=== PATIENT | male | born 1940 | race Caucasian/White ===

== ENCOUNTER 2021-06-18 14:00 | Inpatient (IN) | payer MEDICARE, OTHER ==
[~2021-06-18] VITALS: Ht 172.7 cm; Wt 86.2 kg
--- NOTE | 2021-06-18 14:00 | NUR ---
PT [facility] C/O CHEST PAIN PRESSURE LIKE STARTED 1 HR MINE SAFETY ENGINEER. PT IS AAOX3, NOT IN RESPIRATORY DISTRESS, HOOKED TO WET ROOM WORKER, KEPT RESTED AND COMFORTABLE. WILL CONTINUE TO MONITOR.
--- NOTE | 2021-06-18 14:50 | NUR ---
IV LINE ESTABLISHED BLOOD DRAWN AND SENT TO LAB.
[2021-06-18 15:15] LABS: BASOPHILS # (AUTO) 0.1 K/uL (0.0-0.2); BASOPHILS % (AUTO) 0.8 % (0.0-2.0); EOSINOPHILS % (AUTO) 3.1 % (0.0-6.0); HEMATOCRIT 40 % (39-51); HEMOGLOBIN 13.3 g/dL (13.5-17.5); LYMPHOCYTES % (AUTO) 34.8 % (20.0-44.0); MEAN CORPUSCULAR HGB CONC 34 g/dl (31.0-36.0); MEAN CORPUSCULAR VOLUME 95 fL (80-96); MONOCYTES # (AUTO) 1.3 K/uL (0.1-1.30); MONOCYTES % (AUTO) 14.6 % (2.0-12.0); NEUTROPHILS # (AUTO) 4.1 K/uL (1.8-8.9); NEUTROPHILS % (AUTO) 46.7 % (43.0-81.0); PLATELET COUNT (AUTO) 227 K/uL (150-450); RED BLOOD CELL COUNT(AUTO) 4.18 MIL/uL (4.5-6.0); WHITE BLOOD COUNT (AUTO) 8.7 K/uL (4.3-11.0)
[2021-06-18 15:26] LABS: CALCIUM, SERUM 9.3 mg/dL (8.5-10.1); CREATININE 1.3 mg/dL (0.6-1.3); POTASSIUM 4.9 mmol/L (3.5-5.1)
--- NOTE | 2021-06-18 15:34 | NUR ---
DUNG FROM THE LAB CALLED REGARDING A CRITICAL VALUE OF TROPONIN 0.604. MD LOVE WAS MADE AWARE.
[2021-06-18] MEDS ORDERED: HEPARIN INFUSION/D5W 500 ML IV ONE (15:53)
[2021-06-18] MEDS ORDERED: HEPARIN INFUSION/D5W 500 ML IV PRN ×2 (16:00→16:30)
[2021-06-18] MEDS ORDERED: Z GUARD REMEDY 4 OZ OINT TP PRN (16:30)
[2021-06-18] MEDS ORDERED: ACETAMINOPHEN 325 MG TABLET PO PRN (16:30)
[2021-06-18] MEDS ORDERED: MAGNESIUM HYDROXIDE 30 ML UDC PO PRN (16:30)
[2021-06-18] MEDS ORDERED: ASPIRIN 325 MG TABLET PO SCH (16:30)
[2021-06-18] MEDS ORDERED: ONDANSETRON HCL/PF 4 MG/2 ML VIAL IVP PRN (16:30)
[2021-06-18] MEDS ORDERED: MAG HYDROX/AL HYDROX/SIMETH 30 ML UDC PO PRN (16:30)
[2021-06-18] MEDS ORDERED: AMLO-212 PO (16:56)
[2021-06-18] MEDS ORDERED: MORPHINE SULFATE INJ 4 MG/ML DISP.SYRIN ONE (16:59)
[2021-06-18] MEDS ORDERED: ONDANSETRON HCL/PF 4 MG/2 ML VIAL ONE (16:59)
[2021-06-18] MEDS ORDERED: MORPHINE SULFATE INJ 2 MG/ML DISP.SYRIN IV ONE (17:00)
[2021-06-18] MEDS ORDERED: NAPR-1009 PO (17:12)
[2021-06-18] MEDS ORDERED: MELA3CAP2 PO (17:12)
[2021-06-18] MEDS ORDERED: MULT-439 PO (17:12)
--- NOTE | 2021-06-18 17:14 | NUR ---
ASPIRIN 324MG GIVEN BY EMS WATER PROOFER.
[2021-06-18] MEDS ORDERED: ATORVASTATIN 10 MG TABLET ONE (17:28)
[2021-06-18] MEDS ORDERED: ONDANSETRON HCL/PF 4 MG/2 ML VIAL IV ONE (17:30)
[2021-06-18] MEDS ORDERED: ATORVASTATIN 10 MG TABLET PO SCH (17:30)
[2021-06-18] MEDS ORDERED: METOPROLOL TARTRATE 50 MG TABLET ONE (18:21)
[2021-06-18] MEDS: METOPROLOL TARTRATE 50 MG TABLET PO SCH (18:25)
--- NOTE | 2021-06-18 19:05 | NUR ---
HEPARIN DRIP FOR ACUTE CORONARY SYNDROME INITIATED BY DAY SHIFT RN. RATE AT MAX DOSE 1200UNITS/HR, NO BOLUS GIVEN PER MD.
--- NOTE | 2021-06-18 22:23 | NUR ---
PTT REDRAW RESULTED, PER HEPARIN DRIP PROTOCOL, NO CHANGE. RATE REMAINS AT 1200UNITS/HR
--- NOTE | 2021-06-18 22:26 | NUR ---
LAB AT BEDSIDE
--- NOTE | 2021-06-18 22:30 | NUR ---
PT PLACED ON 2L O2 VIA NC FOR COMFORT. PT SATURATING 96%
--- NOTE | 2021-06-18 23:05 | NUR ---
CRITICAL REPORTED TP ANTHONY PATTERSON DNP. ANTHONY AT BEDSIDE AT THIS TIME
[2021-06-18] MEDS ORDERED: MORPHINE SULFATE INJ 2 MG/ML DISP.SYRIN ONE (23:07)
[2021-06-18] MEDS: MORPHINE SULFATE INJ 2 MG/ML DISP.SYRIN IV PRN (23:14)
--- NOTE | 2021-06-18 23:30 | NUR ---
[facility] CALL INITIATED
--- NOTE | 2021-06-18 23:37 | NUR ---
CLINICALS BEING FAXED
--- NOTE | 2021-06-18 23:38 | NUR ---
SPOKE WITH JENNA WYNNE FAXE [phone]
--- NOTE | 2021-06-19 00:09 | NUR ---
RECEIVED CALL FROM JENNA WYNNE OF [facility]. PER [facility] CARDIOLOG[facility], NO TRANSFER, NOT EMERGENT TRANSFER.
--- NOTE | 2021-06-19 00:13 | NUR ---
DUBBING MACHINE OPERATOR - DR. GROSS
--- NOTE | 2021-06-19 01:07 | NUR ---
CALLED [facility] FOR HIGHER LEVEL OF CARE. BOTH [facility] AND [facility] IS AT CAPACITY AND CAN NOT ACCEPT PATIENT
--- NOTE | 2021-06-19 01:18 | NUR ---
CALLED [facility] TRANSF[facility] FOR HIGHER LEVEL OF CARE. BOTH [facility] AND [facility] IS AT CAPACITY
--- NOTE | 2021-06-19 01:27 | NUR ---
CALLED [facility] TRANSFER CENTER REQUESTING FOR HIGHER LEVEL OF CARE. TRANSFER INITITIATED. SPOKE WITH SOTO, SHE WILL CALL BACK FOR ACCEPTANCE.
--- NOTE | 2021-06-19 02:39 | NUR ---
PT IN BED SLEEPING. NO DISTRESS NOTED.
--- NOTE | 2021-06-19 03:16 | NUR ---
SPOKE WITH SOTO FROM [facility]. HOSPITAL IS AT CAPACITY AT THIS TIME. CASE IS STILL OPEN AND NOT DECLINED. ADVISED TO FOLLOW UP AFTER 0800, CALL TRANSFER CENTER
--- NOTE | 2021-06-19 03:18 | NUR ---
CLINICALS FAXED TO [facility]. PT IS GOING TO BE ON WAITLIST HOSP AT CAPACITY AT THIS TIME. ADVISED TO CALL BACK IN AM TO FOLLOW UP FOR AVAILABILITY
--- NOTE | 2021-06-19 04:41 | NUR ---
COVID SWABS COLLECTED AND SENT TO LAB
--- NOTE | 2021-06-19 05:43 | NUR ---
PT SLEEPING, ATTACHED TO MONITOR, NAD NOTED
--- NOTE | 2021-06-19 06:38 | NUR ---
PT ASSISTED TO RESTROOM, NEEDS MET
[2021-06-19 07:47] LABS: BASOPHILS # (AUTO) 0.1 K/uL (0.0-0.2); BASOPHILS % (AUTO) 0.5 % (0.0-2.0); EOSINOPHILS % (AUTO) 4.4 % (0.0-6.0); HEMATOCRIT 37 % (39-51); HEMOGLOBIN 12.4 g/dL (13.5-17.5); LYMPHOCYTES % (AUTO) 37.4 % (20.0-44.0); MEAN CORPUSCULAR HGB CONC 34 g/dl (31.0-36.0); MEAN CORPUSCULAR VOLUME 94 fL (80-96); MONOCYTES # (AUTO) 1.4 K/uL (0.1-1.30); MONOCYTES % (AUTO) 13.2 % (2.0-12.0); NEUTROPHILS # (AUTO) 4.7 K/uL (1.8-8.9); NEUTROPHILS % (AUTO) 44.5 % (43.0-81.0); PLATELET COUNT (AUTO) 240 K/uL (150-450); RED BLOOD CELL COUNT(AUTO) 3.92 MIL/uL (4.5-6.0); WHITE BLOOD COUNT (AUTO) 10.6 K/uL (4.3-11.0)
[2021-06-19 08:02] LABS: CALCIUM, SERUM 8.9 mg/dL (8.5-10.1); CARBON DIOXIDE 21 mmol/L (21-32); CHLORIDE 105 mmol/L (98-107); CREATININE 1.4 mg/dL (0.6-1.3); GLUCOSE 104 mg/dL (74-106); MAGNESIUM 2.1 mg/dL (1.8-2.4); PHOSPHORUS 3.5 mg/dL (2.5-4.9); POTASSIUM 3.8 mmol/L (3.5-5.1); SODIUM SERUM 137 mmol/L (136-145); UREA NITROGEN, BLOOD 27 mg/dL (7-18)
[2021-06-19] MEDS: METOPROLOL TARTRATE 50 MG TABLET PO SCH ×2 (09:30→20:26)
[2021-06-19] MEDS: ASPIRIN 81 MG TAB.CHEW PO SCH (09:30)
[2021-06-19] MEDS ORDERED: ASPIRIN 81 MG TAB.CHEW ONE (10:27)
[2021-06-19] MEDS ORDERED: METOPROLOL TARTRATE 50 MG TABLET ONE (10:27)
[2021-06-19] MEDS ORDERED: ATORVASTATIN 10 MG TABLET ONE (10:27)
--- NOTE | 2021-06-19 11:24 | NUR ---
DEVANTE FROM [facility] CALLED. CASE BEING DECLINED DUE TO CAPACITY.
--- NOTE | 2021-06-19 11:42 | NUR ---
IV LINE ESTABLISHED G20 R UPPER ARM
[2021-06-19] MEDS ORDERED: HEPARIN INFUSION/D5W 500 ML IV ONE (12:24)
[2021-06-19] MEDS ORDERED: LORAZEPAM INJ 2 MG/ML VIAL ONE (12:51)
[2021-06-19] MEDS ORDERED: LORAZEPAM INJ 2 MG/ML VIAL IV ONE (13:00)
--- NOTE | 2021-06-19 14:34 | NUR ---
GOT BED 103 AFTER 1530
[2021-06-19] MEDS ORDERED: MORPHINE SULFATE INJ 2 MG/ML DISP.SYRIN ONE (14:52)
[2021-06-19] MEDS: MORPHINE SULFATE INJ 2 MG/ML DISP.SYRIN IV PRN (15:01)
--- NOTE | 2021-06-19 15:50 | NUR ---
SALES OFFICER NOTE- 80 Y/O MALE PT ADMITTED TO [facility] DX - NSTEMI, PMHX- CHRONIC ENCEPHALOPATHY, CAD, COPD, ANXIETY AND DEPRESSION. PT IS ALLERGIC TP PCNS, PT COVID RAPID WAS NEG. ON FACE TO FACE- PT PRESENTED W CHEST PAIN AND PRESSURE. BROUGHT TO ED. HE IS ALERT WEAK ORIENTED TO PERSON ONLY AND CONFUSED. PT OPPOSITIONAL TO CARE. VS- 115/65, HR- 77, RR- 18, T- 98.0, SATS 97% ON 2LPM VIA NC. PT ASSISTED TO BR TO VOID. HE IS A FALL RISK, WEAKNESS GENERAL MALAISE AND CONFUSION PRESENT. HE HAS A PIV 20G TO ALFONSO. HEPARIN INFUSING 1200 U/HR. RECHECK COAGS IN AM 06/20/21. PT WAS A BIT AGITATED. ATIVAN ADMINISTERED IN ED. SIDE RAILS UP, BED LOCKED, NEEDS ATTENDED, ASSIST/ MONITOR.
--- NOTE | 2021-06-19 15:55 | NUR ---
PT TRANSFERRED TO 103 VIA ACLS PROTOCOL. VSS. ALL BELONGINGS WITH PT. BEDSIDE REPORT GIVEN TO LYLE FOR LORIE.
[2021-06-19] MEDS: QUETIAPINE FUMARATE 25 MG TABLET PO SCH (16:55)
--- NOTE | 2021-06-19 18:34 | NUR ---
RN NOTE- PT COMBATIVE , CLIMBING OOB, POSTURING YELLING AND AGGRESSIVE. LEONARDO SUPERVISOR HOT DIP TINNING ORDERED SOFT WRIST RESTRAINTS, ATIVAN 0.5 MG IVP Q8H PRN
--- NOTE | 2021-06-19 18:48 | NUR ---
RN CLOSING NOTE- PT QUIETER THOUGH STILL AGITATED. VS STABLE. HEPARIN INFUSING TO ALFONSO. SOFT WRIST RESTRAINTS IN PLACE. SIDE RAILS UP, BED LOCKED , MONITORING BEHAVIOR.
[2021-06-19 20:00] VITALS: BP 113/64
[2021-06-19] MEDS: LORAZEPAM INJ 2 MG/ML VIAL IV PRN (20:28)
--- NOTE | 2021-06-19 20:35 | NUR ---
Patient had episode of agitation breaking out of restraints and flinging legs over siderails. Says he has to use the bathroom and can walk, re-educated patient. MOTOR ANALYST and nurse able to restrain again. PRN Ativan given.
[2021-06-20] VITALS: BP 114/62
[2021-06-20] MEDS: NITROGLYCERIN 0.4 MG/TAB BOTTLE SL PRN ×3 (01:57→02:17)
--- NOTE | 2021-06-20 02:29 | NUR ---
Patient had episode of chest pain no other symptoms. Nitro given x3 -each 5 minutes apart. Patient reported decrease in severity of CP with each tablet and by the end of the third tablet his CP was gone. Patient educated that to conserve the hearts energy he needs to rest and relax as much as possible, but patient is very forgetfull, frequent reinforcement needed. Patient then offered snack and when restraint released pt. attempted to get out of bed. Safety risk d/t pt. unable to ambulate, confused, and on heparin drip. Circultion intact and skin intact under shashank. soft wrist restraints. Toileting offered via urinal. No other needs at this time.
[2021-06-20 04:00] VITALS: BP 111/65
--- NOTE | 2021-06-20 06:37 | NUR ---
Patient A&Ox1-2 overnight. Episodes of confusion and agitation, calmer in morning but still tries to get out of bed and mess with line, pt. shashank. soft wrist restraints. Good perfusion to extremities and skin intact under restraints. Toileted via urinal frequently, frequent checks for needs -able to make needs known. No further episodes of CP. SR and in 70s on monitor. Heparin drip infusing to ALFONSO #20G at 1200 unit/hr, IV intact and patent. All safety measures in place.
--- NOTE | 2021-06-20 07:27 | NUR ---
CORPORATE MEETING PLANNER OPENING NOTES RECEIVED PATIENT IN BED, AWAKE, ALERT AND ORIENTED X 1-2, WITH PERIODS OF CONFUSION NOTED, ON O2 VIA NC AT 2LPM SATURATING WELL, AT 97%. IN NO ACUTE DISTRESS NOTED. IV ACCESS ON ALFONSO G#20, ONGOING HEPARIN DRIP AT 1200 UNITS/HR=24ML/HR, INFUSING WELL, NO S/SX OF INFILTRATION NOTED. NO S/SX OF BLEEDING NOTED. ON TELE MONITOR SHOWING SR HR AT 70'S. SAFETY PRECAUTIONS IN PLACE: BED ON LOWEST LOCKED POSITION, SIDE RAILS UP X 2, CALL LIGHT WITHIN EASY REACH. BILATERAL SOFT RESTRAINTS ON FOR SAFETY. WILL CONTINUE TO MONITOR PATIENT ACCORDINGLY.
[2021-06-20 07:45] LABS: BASOPHILS # (AUTO) 0.1 K/uL (0.0-0.2); BASOPHILS % (AUTO) 0.8 % (0.0-2.0); EOSINOPHILS % (AUTO) 1.7 % (0.0-6.0); HEMATOCRIT 40 % (39-51); LYMPHOCYTES # (AUTO) 4.7 K/uL (0.8-4.8); LYMPHOCYTES % (AUTO) 42.3 % (20.0-44.0); MEAN CORPUSCULAR HGB CONC 33 g/dl (31.0-36.0); MEAN CORPUSCULAR VOLUME 94 fL (80-96); MONOCYTES # (AUTO) 1.6 K/uL (0.1-1.30); MONOCYTES % (AUTO) 14.7 % (2.0-12.0); NEUTROPHILS # (AUTO) 4.5 K/uL (1.8-8.9); NEUTROPHILS % (AUTO) 40.5 % (43.0-81.0); PLATELET COUNT (AUTO) 249 K/uL (150-450); RED BLOOD CELL COUNT(AUTO) 4.23 MIL/uL (4.5-6.0); WHITE BLOOD COUNT (AUTO) 11.1 K/uL (4.3-11.0)
[2021-06-20 08:00] VITALS: BP 123/69
[2021-06-20 08:06] LABS: ALBUMIN 2.6 g/dL (3.4-5.0); BILIRUBIN,TOTAL 1.1 mg/dL (0.2-1.0); CALCIUM, SERUM 8.9 mg/dL (8.5-10.1); CREATININE 1.3 mg/dL (0.6-1.3); MAGNESIUM 2.1 mg/dL (1.8-2.4); PHOSPHORUS 2.8 mg/dL (2.5-4.9); POTASSIUM 4.1 mmol/L (3.5-5.1)
[2021-06-20] MEDS: ATORVASTATIN 40 MG TABLET PO SCH (08:30)
[2021-06-20] MEDS: ASPIRIN 81 MG TAB.CHEW PO SCH (08:30)
[2021-06-20] MEDS: QUETIAPINE FUMARATE 25 MG TABLET PO SCH ×2 (08:30→16:03)
[2021-06-20] MEDS: METOPROLOL TARTRATE 50 MG TABLET PO SCH ×2 (08:31→21:30)
[2021-06-20] MEDS ORDERED: ATORVASTATIN 10 MG TABLET PO SCH (09:00)
[2021-06-20] MEDS: ENOXAPARIN SODIUM 80 MG/0.8 ML DISP.SYRIN SQ SCH ×2 (10:45→23:49)
[2021-06-20 12:24] VITALS: BP 94/60
[2021-06-20] MEDS: LORAZEPAM INJ 2 MG/ML VIAL IV PRN (15:05)
--- NOTE | 2021-06-20 15:12 | NUR ---
RN NOTES PATIENT IS VERY AGITATED NAD RESTLESS, TRIES TO GET OUT BED. ATIVAN GIVEN ORDERED.
[2021-06-20 16:00] VITALS: BP 113/63
--- NOTE | 2021-06-20 17:09 | NUR ---
RN NOTES PATIENT NOTED WITH A-FIB ON TELE MONITOR. NO OTHER S/SX OF CARDIAC DISTRESS NOTED. ANTHONY PATTERSON INFORM. NO NEW ORDERS MADE.
--- NOTE | 2021-06-20 17:36 | NUR ---
RN NOTES EKG STAT ORDERED.
--- NOTE | 2021-06-20 17:51 | NUR ---
RN NOTES EKG DONE, RELAYED TO ANTHONY PATTERSON NP.
--- NOTE | 2021-06-20 18:04 | NUR ---
JENNA NOTES ANTHONY PATTERSON NP, ACKNOWLEDGED, NO NEW ORDERS MADE.
--- NOTE | 2021-06-20 18:09 | NUR ---
RN NOTES PER CHARGE NURSE, CARDIAC CATHETERIZATION WILL BE DONE HERE AT [facility] INSTEAD OF [facility], STILL NEEDS TO SECURE CONSENT. PATIENT UNABLE TO SIGN D/T PATIENT IS CONFUSED AT MOST TIMES.
--- NOTE | 2021-06-20 18:29 | NUR ---
ASSESSMENT CLINICIAN CLOSING NOTES PATIENT IN BED, ASLEEP, EASILY AWAKEN BY VERBAL AND TACTILE STIMULI, WITH PERIODS OF CONFUSION NOTED, ON O2 VIA NC AT 2LPM SATURATING WELL. IN NO ACUTE DISTRESS NOTED. IV ACCESS ON RIGHT HAND G#22, ON TELE MONITOR SHOWING A-FIB HR AT 70'S. SAFETY PRECAUTIONS IN PLACE: BED ON LOWEST LOCKED POSITION, SIDE RAILS UP X 2, CALL LIGHT WITHIN EASY REACH. BILATERAL SOFT RESTRAINTS ON FOR SAFETY. DUE MEDS GIVEN ORDERED, ALL NEEDS ATTENDED AND MET. WILL ENDORSE TO ONCOMING SHIFT FOR LORIE.
[2021-06-20 20:00] VITALS: BP 112/62
--- NOTE | 2021-06-20 20:00 | NUR ---
MANAGER CENTER NOTE PT IN BED AWAKE. A/O X 1 CONFUSED. PT SOMEHOW OPEN THE RESTRAINTS AND CLIMB OUT OF BED TO GO TO BATHROOM. NO INJURIES NOTED. ASSISTED HIM BACK TO BED. REMINDED PT TO ASK FOR HELP IF SOMETHING NEEDED. ON O2 2L VIA N/C CONTINUE TO PUT BACK 02 WITH N/C O2 SAT 94%. SIDE RAILS UP X 3 AND CALL LIGHT WITHIN REACH. VSS CONTINUE TO MONITOR.
[2021-06-21] VITALS (26 sets, daily range): BP systolic 102–159; BP diastolic 31–105
--- NOTE | 2021-06-21 | NUR ---
CAR SHUNTER NOTE ON TELE IDALIA [id number] FROM A [facility] TO [facility].
[2021-06-21 06:24] LABS: BILIRUBIN,URINE NEGATIVE (NEGATIVE); COLOR,URINE YELLOW (YELLOW); LEUKOCYTE ESTERASE ,URINE MODERATE (NEGATIVE); NITRITE, URINE POSITIVE (NEGATIVE); PROTEIN,URINE 100 mg/dl (NEGATIVE); UGLUCOSE NEGATIVE (NEGATIVE); UROBILINOGEN,URINE 0.2 EU/dL (0.2)
--- NOTE | 2021-06-21 06:34 | NUR ---
MUD MIXER OPERATOR NOTE PT IN BED ASLEEP AROUSABLE NO DISTRESS OR DISCOMFORT NOTED. DENIES PAIN. REMAIN WITH BILATRAL WRIST RESTRAINTS. NO DISTRESS OR DISCOMFORT NOTED. WILL ENDORSE TO DAY SHIFT NURSE FOR CONTINUE TO CARE.
[2021-06-21 06:56] LABS: CREATININE, URINE 112.6 MG/DL (30.0-125.0); URINE TOTAL PROTEIN 224.8 mg/dL (0-11.9)
--- NOTE | 2021-06-21 07:36 | NUR ---
RN OPENING NOTES RECEIVED PATIENT IN BED, SLEEPING COMFORTABLY IN BED. BREATHING EVEN AND UNLABORED. NO SOB OR ANY ACUTE DISTRESS NOTED ON O2 VIA NC AT 2LPM, TOLERATING WELL. IV ACCESS ON RIGHT HAND # 22. FLUSHED WELL, PATENT AND INTACT. NO S/SX OF INFILTRATION NOTED. NO S/SX OF BLEEDING NOTED. PATIENT ON BILATERAL SOFT WRISTS RESTRAINTS FOR SAFETY. SAFETY PRECAUTIONS IN PLACE: BED ON LOWEST LOCKED POSITION, SIDE RAILS UP X 2, CALL LIGHT WITHIN EASY REACH. WILL CONTINUE TO MONITOR PATIENT ACCORDINGLY.
[2021-06-21 08:32] LABS: CALCIUM, SERUM 9.2 mg/dL (8.5-10.1); CARBON DIOXIDE 25 mmol/L (21-32); CHLORIDE 105 mmol/L (98-107); CREATININE 1.5 mg/dL (0.6-1.3); GLUCOSE 97 mg/dL (74-106); MAGNESIUM 2.3 mg/dL (1.8-2.4); POTASSIUM 4.1 mmol/L (3.5-5.1); SODIUM SERUM 137 mmol/L (136-145); UREA NITROGEN, BLOOD 35 mg/dL (7-18)
[2021-06-21 08:48] LABS: BASOPHILS # (AUTO) 0.1 K/uL (0.0-0.2); BASOPHILS % (AUTO) 0.9 % (0.0-2.0); EOSINOPHILS % (AUTO) 1.6 % (0.0-6.0); HEMATOCRIT 37 % (39-51); HEMOGLOBIN 12.3 g/dL (13.5-17.5); LYMPHOCYTES # (AUTO) 3.4 K/uL (0.8-4.8); LYMPHOCYTES % (AUTO) 33.1 % (20.0-44.0); MEAN CORPUSCULAR HGB CONC 34 g/dl (31.0-36.0); MEAN CORPUSCULAR VOLUME 96 fL (80-96); MONOCYTES # (AUTO) 1.7 K/uL (0.1-1.30); MONOCYTES % (AUTO) 16.2 % (2.0-12.0); NEUTROPHILS % (AUTO) 48.2 % (43.0-81.0); PLATELET COUNT (AUTO) 244 K/uL (150-450); RED BLOOD CELL COUNT(AUTO) 3.85 MIL/uL (4.5-6.0); WHITE BLOOD COUNT (AUTO) 10.3 K/uL (4.3-11.0)
[2021-06-21] MEDS: QUETIAPINE FUMARATE 25 MG TABLET PO SCH ×2 (09:00→18:13)
[2021-06-21] MEDS: METOPROLOL TARTRATE 50 MG TABLET PO SCH ×2 (09:00→20:54)
[2021-06-21] MEDS: ATORVASTATIN 40 MG TABLET PO SCH (09:00)
[2021-06-21] MEDS: ENOXAPARIN SODIUM 80 MG/0.8 ML DISP.SYRIN SQ SCH ×2 (09:00→20:54)
[2021-06-21] MEDS: ASPIRIN 81 MG TAB.CHEW PO SCH (09:00)
[2021-06-21 10:03] LABS: ALBUMIN 2.4 g/dL (3.4-5.0); BILIRUBIN,DIRECT 0.7 mg/dL (0.0-0.2); BILIRUBIN,TOTAL 1.3 mg/dL (0.2-1.0); TOTAL PROTEIN, SERUM 7.6 g/dL (6.4-8.2)
[2021-06-21 10:50] LABS: BACTERIA,URINE Few /HPF (None Seen); SQUAMOUS EPITHELIAL CELL,UR Rare /HPF (None Seen); WBC,URINE 81-100 /HPF (0-3)
[2021-06-21 11:45] LABS: EOSINOPHIL,URINE Rare
[2021-06-21] MEDS ORDERED: IODIXANOL 150 ML IV ONE (12:31)
[2021-06-21] MEDS ORDERED: IV SET PRIMARY PUMP SET 1 EA INFUS.SET MC ONE (12:31)
[2021-06-21] MEDS ORDERED: IV NS 0.9% 500 ML IV ONE (12:31)
[2021-06-21] MEDS ORDERED: LIDOCAINE HCL/MPF 1% 30 ML VIAL IJ ONE (12:32)
[2021-06-21] MEDS ORDERED: FENTANYL PF 100MCG/2ML AMPUL ONE (12:32)
[2021-06-21] MEDS ORDERED: MIDAZOLAM HCL 2 MG/2ML VIAL ONE (12:32)
--- NOTE | 2021-06-21 12:45 | NUR ---
RN NOTE PATIENT WAS PICKED UP FOR ENTRANCE GUARD PROCEDURE. PATIENT IN STABLE CONDITION AT THE TIME.
[2021-06-21] MEDS ORDERED: NITROGLYCERIN IN 5 % DEXTROSE 250 ML IV ONE (13:11)
--- NOTE | 2021-06-21 14:05 | NUR ---
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 -Patient can potentially have rotational atherectomy of the proximal LAD with the placement of 1 drug-eluting stent. I will go ahead and initiate transfer to [facility] for the procedure. case management aware of. patient has on right femoral dressing intact, surrounding tissue is soft, no bleeding notes, pule is present. patient very anxious after procedure, unable to hold right leg flat, has soft bilateral restrain on both wrist. due medication administered, call light within to reach, will follow up.
[2021-06-21] MEDS: LORAZEPAM INJ 2 MG/ML VIAL IV PRN (14:33)
--- NOTE | 2021-06-21 14:33 | NUR ---
rn notes administered Ativan 0.25mg /ml iv push for anxiety. not following direction, trying to get out ob bed.
[2021-06-21] MEDS: MORPHINE SULFATE INJ 2 MG/ML DISP.SYRIN IV PRN (14:43)
--- NOTE | 2021-06-21 14:43 | NUR ---
rn notes administered morphine sulfate 2 mg/ml at this time because of pain, unstable to scale, bp 158//81, p-87, .r-19. will follow up.
[2021-06-21] MEDS ORDERED: HEPARIN INFUSION/D5W 500 ML IV PRN (15:00)
--- NOTE | 2021-06-21 15:00 | NUR ---
RN NOTES GET TO ORDER CARDIOLOGISTdR TAMBE CONTINUE HEPARIN ACUTE CORONARY SYNDROME /AMI. ORDER TAKEN AND CARRIED OUT. ALSO ORDERED PTT STAT .
[2021-06-21] MEDS: IV NS 0.9% 500 ML IV PRN (15:04)
--- NOTE | 2021-06-21 15:39 | NUR ---
RN NOTES PER JAPANESE TUTOR Dr SOSA D/C HEPARIN DRIP, ONLY RESUME LOVENOX SQ. ORDER TAKEN AND CARRIED OUT.
[2021-06-21 16:07] LABS: *SPE A/G RATIO 0.6 (0.7-1.7); *SPE ALPHA-1-GLOBULIN 0.4 g/dL (0.0-0.4); *SPE ALPHA-2-GLOBULIN 0.8 g/dL (0.4-1.0); *SPE M-SPIKE Not Observed g/dL (Not Observed)
--- NOTE | 2021-06-21 18:30 | NUR ---
rn notes due medication administered, assist eating. infusing ns @100 ml x5 hr intact. patient unable to eat because has no denture , diet changed. patient has less tolerance, hard to follow direction, trying to get out of bed. side rails up, bed alarm on. endorsed oncoming nurse follow plan of care.
--- NOTE | 2021-06-21 20:00 | NUR ---
ICU NOTES Received patient awake alert but confused trying to get out of bed.Bilateral soft wrist restraints applied for safety.Reoriented.Dx: NSTEMI.Failed Heart Cath.Right groin dressing clean dry and intact.With stable vital signs.Respiration even and unlabored.Saturation on RA low 90's.Incontinent of urine.Kept clean and dry. Continue monitoring.
[2021-06-22] VITALS (15 sets, daily range): BP systolic 104–148; BP diastolic 51–94
--- NOTE | 2021-06-22 01:50 | NUR ---
ICU NOTES Received call from [facility] from [facility].Patient updates provided. He said will call back later.
[2021-06-22 04:59] LABS: CALCIUM, SERUM 8.5 mg/dL (8.5-10.1); CARBON DIOXIDE 20 mmol/L (21-32); CHLORIDE 106 mmol/L (98-107); CREATININE 1.5 mg/dL (0.6-1.3); GLUCOSE 115 mg/dL (74-106); SODIUM SERUM 138 mmol/L (136-145); UREA NITROGEN, BLOOD 35 mg/dL (7-18)
--- NOTE | 2021-06-22 06:40 | NUR ---
ICU NOTE Patient status unchanged.VS remains stable.No acute distress noted.Kept clean and comfortable.Needs met.Possible transfer to other hospital for procedure.
--- NOTE | 2021-06-22 07:00 | NUR ---
END NOTE Received call from [facility] inquiring about the patient.Updates given. She said she will call back.Report given to day shift RN.
--- NOTE | 2021-06-22 07:37 | NUR ---
RN NOTE PATIENT IS IN BED WITH HOB AT SEMI FOWLERS POSITION. PATIENT IS ON 2L NC WITH NO SIGNS OF LABORED BREATHING. PATIENT IS AOX2. RIGHT HAND IV ACCESS IS PATENT AND INTACT. BED IS LOCKED IN THE LOWEST POSITION, 3 GUARD RAILS RAISED, CALL MOULTON WITHIN REACH, AND ALL HOSPITAL SAFETY PRECAUTIONS ARE BEING FOLLOWED. WILL CONTINUE TO MONITOR THROUGHOUT SHIFT.
[2021-06-22] MEDS: ASPIRIN 81 MG TAB.CHEW PO SCH (08:34)
[2021-06-22] MEDS: QUETIAPINE FUMARATE 25 MG TABLET PO SCH (08:34)
[2021-06-22] MEDS: ATORVASTATIN 40 MG TABLET PO SCH (08:34)
[2021-06-22] MEDS: METOPROLOL TARTRATE 50 MG TABLET PO SCH (08:37)
[2021-06-22] MEDS: ENOXAPARIN SODIUM 80 MG/0.8 ML DISP.SYRIN SQ SCH (08:38)
[2021-06-22] MEDS: IV NS 0.9% 500 ML IV PRN (09:04)
--- NOTE | 2021-06-22 13:00 | NUR ---
RN NOTE REPORT GIVEN TO JENNA JAIN AT [facility].
== END 2021-06-22 14:33 | disposition short-term general hospital (02) | DRG 280 ==
LOC: ER 14:08 → TRANSITION 22:09 → TELE1 06-19 15:31 → ICU 06-21 13:56
PROVIDERS: ADMIT Internal Medicine; ATTEND Student in an Organized Health Care Education/Training Program
PROC: 4A023N7 Measurement of Cardiac Sampling and Pressure, Left Heart, Percutaneous Approach (ICD-10-PCS; principal; 2021-06-21)
PROC: B2111ZZ Fluoroscopy of Multiple Coronary Arteries using Low Osmolar Contrast (ICD-10-PCS; 2021-06-21)
DX: I25.10 Atherosclerotic heart disease of native coronary artery without angina pectoris (principal); I21.4 Non-ST elevation (NSTEMI) myocardial infarction; N17.0 Acute kidney failure with tubular necrosis; G93.41 Metabolic encephalopathy; E11.65 Type 2 diabetes mellitus with hyperglycemia; E11.22 Type 2 diabetes mellitus with diabetic chronic kidney disease; F03.90 Unspecified dementia, unspecified severity, without behavioral disturbance, psychotic disturbance, mood disturbance, and anxiety; D64.9 Anemia, unspecified; F41.9 Anxiety disorder, unspecified; I13.10 Hypertensive heart and chronic kidney disease without heart failure, with stage 1 through stage 4 chronic kidney disease, or unspecified chronic kidney disease; F32.A Depression, unspecified; Z88.0 Allergy status to penicillin; Z79.899 Other long term (current) drug therapy; J44.9 Chronic obstructive pulmonary disease, unspecified; N18.9 Chronic kidney disease, unspecified; E78.5 Hyperlipidemia, unspecified; N13.9 Obstructive and reflux uropathy, unspecified; Z20.822 Contact with and (suspected) exposure to COVID-19
CPT/HCPCS: 36415; 71045-TC; 80048-TC; 80053-TC; 80076-TC; 81001; 82550-TC; 82553; 82570-TC; 83735-TC; 83970; 84100-TC; 84155; 84155-TC; 84165; 84300-TC; 84484-TC; 85025-TC; 85610-TC; 85730-TC; 87081-TC; 87086-TC; 93307-TC; C1887; C1894; G0378; G0500; J1644; J1650; J2060; J2250; J2270; J2405; J3010; J3490; J7030; J7040; Q9967; U0003